=== PATIENT | female | born 1955 | race African-American/Black ===

== ENCOUNTER → 2018-02-16 | Outpatient (CLI) | payer BC ==
[2018-02-16 09:43] LABS: HEMOGLOBIN A1C 5.9 %
[2018-02-16 09:49] LABS: ALANINE AMINOTRANSFERASE 25 Units/L (12-78); ALBUMIN 3.6 g/dL (3.4-5.0); ALKALINE PHOSPHATASE 96 Units/L (46-116); ASPARTATE AMINO TRANSFERASE 18 Units/L (15-37); BLOOD UREA NITROGEN 23 mg/dL (7-18); CHLORIDE 107 mmol/L (98-107); CHOLESTEROL 178 mg/dL (0-200); FREE T4 (FREE THYROXINE) 0.98 ng/dL (0.76-1.46); HDL CHOLESTEROL 45 mg/dL (40-60); PHOSPHORUS 3.4 mg/dL (2.6-4.7); SODIUM 142 mmol/L (136-145); T4 (THYROXINE) 8.8 ug/dL (4.7-13.3); TOTAL PROTEIN 8.3 g/dL (6.4-8.2); TRIGLYCERIDES 78 mg/dL (0-150); TSH (3RD GENERATION) 1.547 uIU/mL (0.358-3.74); URIC ACID 7.9 mg/dL (2.6-6.0); eGFR BLACK RACES 46 (>60); eGFR NON BLACK RACES 38 (>60)
[2018-02-16 09:55] LABS: BASOPHILS % (AUTO) 0.5 % (0.2-1.0); EOSINOPHILS # (AUTO) 0.1 x10^3/uL (0.0-0.2); HEMATOCRIT 37.8 % (36.0-47.0); HEMOGLOBIN 12.2 g/dL (12.0-16.0); LYMPHOCYTES # (AUTO) 2.5 X10^3/uL (1.3-2.9); MEAN CORPUSCULAR HEMOGLOBIN 26.3 pg (27.0-34.0); MEAN CORPUSCULAR HGB CONC 32.2 g/dL (33.0-35.0); MEAN CORPUSCULAR VOLUME 81.5 fL (80.0-100.0); MEAN PLATELET VOLUME 9.2 fL (7.4-11.0); MONOCYTES # (AUTO) 0.4 x10^3/uL (0.3-0.8); MONOCYTES % (AUTO) 6.1 % (0.0-13.0); NEUTROPHILS # (AUTO) 3.9 x10^3/uL (2.2-4.8); NEUTROPHILS % (AUTO) 55.4 % (42.0-75.0); PLATELET COUNT 315 X10^3/uL (150.0-450.0); RED BLOOD COUNT 4.63 X10^6/uL (3.5-5.4); RED CELL DISTRIBUTION WIDTH 14.8 % (11.6-16.5); WHITE BLOOD COUNT 7.1 X10^3/uL (3.6-10.0)
--- NOTE | 2018-02-16 16:13 | US ---
Examination: Thyroid ultrasound. Clinical History: Goiter. Technique: Real-time grayscale ultrasound was used to evaluate the thyroid. Comparison: None available. Findings: The right lobe measures 4.4 x 3.4 x 2.3 cm and is heterogeneous in appearance, with a solid-appearing 1.4 x 0.9 cm nodule seen associated with the mid to lower pole. A 0.8 x 0.7 cm hyperechoic nodule is seen associated with the mid to upper pole of the right lobe. The left lobe measures 5.0 x 2.6 x 2.2 cm and is heterogeneous in appearance, with a 5 x 3 x 4 mm mix ed echogenicity nodule seen associated with the upper pole and a 6 x 5 mm partially calcified nodule seen associated with the lower pole. The isthmus measures 8 mm in the AP diameter and is prominent and heterogeneous in appearance, with a n associated ill-defined hypoechoic nodule measuring 0.6 x 1.0 cm in size. Impression: 1. Multinodular goiter, as described above. Ultrasound-guided fine-needle aspiration biopsy of the la rgest solid-appearing nodule associated with the right lobe needs to be considered. A follow-up thyro id ultrasound could be obtained in 6 months to reassess the smaller nodule seen associated with both lobes of the thyroid. Reported By:
== END ==
LOC: RAD 08:55
PROVIDERS: ATTEND Psychiatry & Neurology Neurology
DX: E04.8 Other specified nontoxic goiter (principal); I12.9 Hypertensive chronic kidney disease with stage 1 through stage 4 chronic kidney disease, or unspecified chronic kidney disease; N18.3 Chronic kidney disease, stage 3 (moderate); R40.0 Somnolence
CPT/HCPCS: 36415; 76536; 80053; 80061; 82607; 82746; 83036; 84100; 84436; 84439; 84443; 84550; 85025

== ENCOUNTER → 2018-03-03 | Outpatient (CLI) | payer BC | LOC: LAB 10:25 | PROVIDERS: ATTEND Surgery | DX: E04.1 Nontoxic single thyroid nodule (principal) | CPT/HCPCS: 36415; 82308; 82378 ==

== ENCOUNTER → 2018-03-17 | Outpatient (CLI) | payer BC ==
--- NOTE | 2018-03-17 09:29 | CT ---
Indication: Goiter Exam: CT neck without contrast Technique: Axial spiral images were obtained from the base the skull through the clavicles without co ntrast. Coronal and sagittal multiplanar reconstructions were performed. Findings: The visualized intracranial and orbital contents are unremarkable. The nasopharynx is unrem arkable. The parotid and submandibular glands are normal size and density. There are small lymph node s along the submandibular regions anteriorly and posteriorly measuring up to 8 mm. There small lymph nodes along the internal jugular chains bilaterally extending posteriorly with the largest node measu ring up to 9 mm. There is mild symmetric enlargement of the lingular tonsils with a punctate calcific ation in the tonsillar region on the right . There is no mass or inflammation seen. The parapharyngea l soft tissues are normal. The epiglottis and glottis are unremarkable. The subglottic airway is unre markable. The thyroid gland is mildly enlarged and heterogeneous with a calcification on the left. No obvious mass can be seen . There is no supraclavicular mass or adenopathy. There is mild linear scar ring along the left apex. There is a left pacemaker in place. The prevertebral soft tissues are zev l . The bones are intact. Impression: Limited exam due to lack of IV contrast. Slight asymmetric enlargement of the lingular tonsils with a calcification on the right suggestive of chronic tonsillitis with no mass or active inflammation seen. Small shotty lymph nodes scattered along the upper neck and submandibular regions which are probably reactive in etiology. Recommend clinical follow-up. Mildly heterogeneous thyroid goiter with no obvious mass seen. Suggest ultrasound correlation. Reported By:
--- NOTE | 2018-03-18 09:29 | NM ---
THYROID UPTAKE AND SCAN HISTORY: 62-year-old female with thyroid disorder complaints of weight gain and right-sided neck swel ling. RADIOPHARMACEUTICAL: 200 uCi I-123 PO. TECHNIQUE: At approximately 6 and 24 hours after radiotracer administration: Spot views of the neck. COMPARISON: None. OTHER STUDIES USED FOR CORRELATION: CT soft tissue neck 03/17/2018, thyroid ultrasound 02/16/2018 FINDINGS: 6 hour uptake is 5.4%, normal is 5-15%. 24 hour uptake is 6.1%, normal uptake 10-35%. Right lobe: Homogeneous uptake. Nodules: None. Left lobe: Homogeneous uptake. Nodules: None. IMPRESSION: Findings most consistent with multinodular goiter. Correlate with serology. Reported By:
== END ==
LOC: RAD 08:27
PROVIDERS: ATTEND Surgery
DX: E07.89 Other specified disorders of thyroid (principal)
CPT/HCPCS: 70490; 78014; A9516

== ENCOUNTER → 2018-04-17 | Outpatient (CLI) | payer BC | LOC: RAD 16:46 | PROVIDERS: ATTEND Psychiatry & Neurology Neurology | DX: Z12.31 Encounter for screening mammogram for malignant neoplasm of breast (principal); I12.9 Hypertensive chronic kidney disease with stage 1 through stage 4 chronic kidney disease, or unspecified chronic kidney disease; N18.3 Chronic kidney disease, stage 3 (moderate); R23.2 Flushing ==